=== PATIENT | male | born 1975 | race Caucasian/White ===

== ENCOUNTER 2019-04-25 07:38 | Inpatient (IN) | payer BC, SELFPAY ==
[2019-04-25] MEDS ORDERED: Clindamycin/D5W 900 mg/50 ml Premix Bag ONE (08:04)
[2019-04-25 08:12] LABS: #Eosinphils 0.1 thou/uL (0.0-0.7); #Lymphocytes 1.2 thou/uL (1.20-3.40); #Monocytes 1.3 thou/uL (0.11-0.59); #Neutrophils 9.9 thou/uL (1.40-6.50); %Eosinophils 0.5 % (0.0-10.0); %Lymphocytes 9.6 % (21.0-51.0); %Monocytes 10.7 % (0.0-10.0); %Neutrophils 79.3 % (42.0-75.0); Hemoglobin 16.3 g/dL (14.0-18.0); Mean Corpuscular HGB CONC 34.2 g/dL (32.0-36.0); Mean Corpuscular Volume 87.9 fL (78.0-98.0); Mean Platelet Volume 6.9 fL (7.4-10.4); Platelet Count 223 thou/uL (130-400); RBC Distribution Width 12.7 % (11.5-14.5); Red Blood Cell (RBC) Count 5.44 mill/uL (4.70-6.10); White Blood Cell (WBC) Count 12.5 thou/uL (4.8-10.8)
[2019-04-25 08:17] LABS: PTT 24.1 SEC (22.9-36.1); Prothrombin Time 13.6 SEC (12.0-14.7)
[2019-04-25] MEDS ORDERED: Morphine 4 MG/ML VIAL ONE (08:24)
--- NOTE | 2019-04-25 08:24 | RAD ---
Exam: Chest one view HISTORY:Fever. Abscess to the buttocks. Comparison: None FINDINGS: Cardiac silhouette: Normal Aorta: Unremarkable Pulmonary vessels: Normal Costophrenic angles: Clear LUNGS: No masses or consolidation. Pneumothorax: None Osseous abnormalities: None IMPRESSION: No acute cardiopulmonary process.
[2019-04-25 08:35] LABS: ALT (SGPT) 28 U/L (8-55); AST (SGOT) 14 U/L (5-34); Albumin 4.4 g/dL (3.5-5.0); Alkaline Phosphatase 105 U/L (40-150); Anion Gap 17 mmol/L (10-20); BUN (Urea Nitrogen) 16 mg/dL (8.9-20.6); Bilirubin, Total 0.9 mg/dL (0.2-1.2); CK (CPK) 29 U/L (30-200); Calc. Creatinine Clearance 0 mL/min (70-130); Calcium 9.7 mg/dL (7.8-10.44); Carbon Dioxide 21 mmol/L (22-29); Chloride 100 mmol/L (98-107); Estimated GFR-MDRD Greater than 90; Globulin 3.6 g/dL (2.4-3.5); Glucose 335 mg/dL (70-105); Potassium 4.2 mmol/L (3.5-5.1); Sodium 134 mmol/L (136-145)
--- NOTE | 2019-04-25 09:10 | CT ---
Exam: Postcontrast pelvic CT HISTORY: Abscess involving the right buttocks. Comparison none FINDINGS: Visualized intrapelvic structures are unremarkable. Unremarkable urinary bladder No abnormality with regards to the osseous structures. There is mild degenerative change in the lumbo sacral junction with osteophyte formation. Midline intrapelvic structures are. There is a tract emanating from the posterior right aspect of the base of the perineum, just anterior to the midline of the rectum. This tract extends inferiorly and along the medial right buttock subcutaneous fat and soft tissues. There is evidence of small air-fluid level with multiple small poc kets of air attenuation. This collection measures 7.0 cm anterior-posterior by 3.2 cm mediolateral by 7.7 cm craniocaudal. There is induration of the adjacent fat. With regards to the left buttocks, no abnormality IMPRESSION: Right buttocks perirectal abscess described above. There is a small focus of continuity of the absces s that is centered in the medial right buttocks subcutaneous fat with the anterior midline rectum.
[2019-04-25] MEDS ORDERED: Lidocaine 1% w/Epinephrine 1:100K 20 ML VIAL ONE (10:29)
[2019-04-25] MEDS ORDERED: Iopamidol 370 76% 100 ML VIAL ONE (11:18)
[2019-04-25 12:21] LABS: Lactic Acid 1.1 mmol/L (0.5-2.2)
[2019-04-25 12:23] LABS: Bilirubin Negative (Negative); Blood, Urine Negative (Negative); Clarity Clear (Clear); Glucose, Urine (Dipstick) Greater than 1000 mg/dL (Negative); Leukocyte Negative Leu/uL (Negative); Nitrite Negative (Negative); Protein, Urine (Dipstick) Negative (Neg-Trace); Urobilinogen Normal mg/dL (Less than 2)
[2019-04-25] MEDS ORDERED: Morphine 2 MG/ML SYRINGE SLOW IVP PRN (12:50)
[2019-04-25] MEDS ORDERED: Dextrose 50% Abboject 50 ML SYRINGE IVP PRN (12:50)
[2019-04-25] MEDS ORDERED: Dextrose 5% in Water 1,000 ML IV PRN (12:50)
[2019-04-25] MEDS ORDERED: Sodium Chloride 0.9% 1,000 ML IV SCH (13:00)
[2019-04-25] MEDS ORDERED: Clindamycin/D5W 900 MG in Premix Bag 1 BAG IVPB SCH (17:00)
[2019-04-25 17:06] VITALS: BMI 38.8
[2019-04-25] MEDS ORDERED: Acetaminophen 325 MG TAB PO PRN (20:14)
[2019-04-25] MEDS ORDERED: Ibuprofen 200 MG TAB PO PRN ×2 (20:15)
[2019-04-25] MEDS: Piperacillin/Tazobactam 3.375 GM in Sodium Chloride 0.9% 100 ML IVPB SCH (20:27)
[2019-04-25] MEDS: Ibuprofen 600 MG TAB PO PRN (20:49)
[2019-04-25] MEDS ORDERED: Vancomycin HCl 1 GM in Premix Bag 1 BAG IVPB SCH (22:00)
--- NOTE | 2019-04-26 01:35 | HP ---
CHIEF COMPLAINT: Right buttock pain. HISTORY OF PRESENT ILLNESS: Mr. Ventura is a 44-year-old man with a 2-week history of pain, swelling and redness in his right perianal area. This has spread to include the perineum and posterior scrotum and over the past 3 days, has become much more swollen and tender. He has not had any drainage. He has had some fevers today. He came to the emergency room and was found to have a large perirectal abscess. The ER doctor did not feel comfortable draining. He has never had anything similar to this before. He is otherwise healthy. He denies any injury to the area. PAST MEDICAL HISTORY: Hypertension, diabetes and hyperlipidemia. PAST SURGICAL HISTORY: None. SOCIAL HISTORY: The patient does not smoke or use illicit drugs. He drinks socially about once a week. ALLERGIES: NO KNOWN DRUG ALLERGIES. OUTPATIENT MEDICATIONS: Include; 1. Jardiance. 2. Glyburide. 3. Lisinopril. 4. Lipitor. 5. Metformin. REVIEW OF SYSTEMS: Ten-system review of systems is negative except as per HPI. Pain is exacerbated by movement or pressure. He has not had any blood in his stool or changes in his bowel habits. PHYSICAL EXAMINATION: VITAL SIGNS: The patient did have a fever to 101 in the emergency room. He was fairly tachycardic on arrival in the 120s, but this came down with IV fluids to about 100, respirations, and room air saturations were normal. Blood pressure was normal to elevated. GENERAL: Revealed a flushed, uncomfortable appearing man, who is warm to the touch. He is not jaundiced or icteric. HEENT: Unremarkable. NECK: Supple without lymphadenopathy or thyroid nodules. HEART: Sounds are distant, but regular in rate and rhythm. LUNGS: Sounds are also distant, but clear. ABDOMEN: Soft, nontender, nondistended without palpable masses or hernias. EXTREMITIES: Warm and well perfused. NEUROLOGIC: No focal deficits. PSYCHIATRIC: Alert, oriented and appropriate. Perianal exam reveals a large amount of swelling, tenderness and redness over the entire right perianal area and extending up onto the perineum and posterior scrotum. There is a fluctuant area in the right perianal area, where the abscess very closely approaches the skin by ultrasound. This was marked. No expressible drainage at this point. No skin opening. Digital rectal exam was not performed due to the patient's severe pain. CT images are reviewed and I agree with written report. He has a large perirectal abscess extending from the right perirectal area all the way around to the anterior portion of the perianal area, which is likely where the abscess originated. LABORATORY DATA: White count is elevated at 12.5 with left shift. Coags are normal. Electrolytes are unremarkable. LFTs are normal and lactate is normal. Urine is positive for greater than 1000 glucose and 60 ketones. ASSESSMENT: Large right perirectal abscess. I recommended incision and drainage at the bedside with drain placement. Due to significant cellulitis, he will need to be admitted for IV antibiotics after the procedure. The patient is agreeable with this plan and I and D was performed with drainage of a large amount of pus. The abscess extends anteriorly 7 cm and the cavity was irrigated and a drain placed. He is going to be admitted for antibiotics and wound care. Job ID: [id number]
[2019-04-26] MEDS: Piperacillin/Tazobactam 3.375 GM in Sodium Chloride 0.9% 100 ML IVPB SCH ×4 (03:34→21:22)
[2019-04-26] MEDS: Ibuprofen 600 MG TAB PO PRN (08:26)
[2019-04-26] MEDS ORDERED: Lidocaine 1% PF 5 ML VIAL ONE (14:27)
[2019-04-26] MEDS ORDERED: Succinylcholine Chloride 20 MG/ML 10 ml SYRINGE FS ONE (14:27)
[2019-04-26] MEDS ORDERED: Ondansetron PF 4 MG/2 ML Vial ONE (14:27)
[2019-04-26] MEDS ORDERED: Dexamethasone 20 MG/5 ML VIAL ONE (14:27)
[2019-04-26] MEDS ORDERED: PROPOFOL 200 MG/20 ML VIAL ONE (14:27)
[2019-04-26] MEDS ORDERED: Metoclopramide HCl 10 MG/2 ML VIAL ONE (14:27)
[2019-04-26] MEDS ORDERED: Lidocaine 2% PF 5 ML VIAL ONE (16:00)
[2019-04-26] MEDS ORDERED: Bupivacaine/Epinephrine 0.25% 30 ML VIAL ONE (16:00)
[2019-04-26] MEDS ORDERED: Fentanyl 100 MCG/2 ML VIAL ONE ×2 (16:30→17:10)
--- NOTE | 2019-04-26 16:34 | PDOC.GSPN ---
Surgery Progress Note: Subj - Subjective Narrative: Patient is still having a lot of pain. He is draining quite a bit from the I&D site, but there is still expressible purulence from the anterior extension of the abscess cavity. His erythema and induration has not really improved. I suspect he will need a counterincision over the perineum in order to adequately drain this large abscess cavity. I made him nothing by mouth and posted for the OR later this afternoon. Surgery Progress Note: Obj - Vital signs Vital signs: Vital Signs - Most Recent Temp Pulse Resp BP Pulse Ox 98.4 F 77 18 134/85 96 04/26/19 14:59 04/26/19 14:59 04/26/19 14:59 04/26/19 14:59 04/26/19 14:59 Surgery Progress Note: Results - Labs Result Diagrams: 04/25/19 08:01 04/25/19 08:01
[2019-04-26] MEDS ORDERED: SUGAMMADEX SODIUM 500 MG/5 ML VIAL ONE (17:10)
[2019-04-26] MEDS ORDERED: Famotidine/PF 20 mg/2ml Vial ONE (17:10)
[2019-04-26] MEDS ORDERED: Morphine 2 MG/ML SYRINGE SLOW IVP PRN (17:19)
[2019-04-26] MEDS ORDERED: Morphine 4 MG/ML VIAL SLOW IVP PRN (17:19)
[2019-04-26] MEDS ORDERED: HYDROcodone/Acetaminophen 7.5/325 mg Tablet PO PRN (17:20)
[2019-04-26] MEDS ORDERED: Promethazine HCl 25 MG/ML VIAL SLOW IVP PRN (17:55)
[2019-04-26] MEDS ORDERED: Ondansetron HCl/PF 4 MG/2 ML Vial IVP PRN (17:55)
[2019-04-26] MEDS ORDERED: Promethazine HCl 25 MG/ML VIAL IM PRN (17:55)
[2019-04-27] MEDS: Piperacillin/Tazobactam 3.375 GM in Sodium Chloride 0.9% 100 ML IVPB SCH ×4 (03:50→21:01)
[2019-04-27] MEDS: Ibuprofen 600 MG TAB PO PRN ×2 (03:59→15:39)
[2019-04-27 05:55] LABS: #Lymphocytes 0.8 thou/uL (1.20-3.40); #Monocytes 0.5 thou/uL (0.11-0.59); #Neutrophils 6.4 thou/uL (1.40-6.50); %Basophils 0.1 % (0.0-1.0); %Eosinophils 0.5 % (0.0-10.0); %Lymphocytes 10.5 % (21.0-51.0); %Monocytes 6.6 % (0.0-10.0); %Neutrophils 82.3 % (42.0-75.0); Hemoglobin 14.5 g/dL (14.0-18.0); Mean Corpuscular HGB CONC 31.9 g/dL (32.0-36.0); Mean Corpuscular Hemoglobin 28.5 pg (27.0-31.0); Mean Corpuscular Volume 89.2 fL (78.0-98.0); Platelet Count 238 thou/uL (130-400); RBC Distribution Width 12.6 % (11.5-14.5); White Blood Cell (WBC) Count 7.7 thou/uL (4.8-10.8)
[2019-04-27 06:00] LABS: Hemoglobin A1c 11.6 % (4.0-6.0)
[2019-04-27 06:18] LABS: Anion Gap 17 mmol/L (10-20); BUN (Urea Nitrogen) 13 mg/dL (8.9-20.6); Calc. Creatinine Clearance 248 mL/min (70-130); Calcium 9.1 mg/dL (7.8-10.44); Carbon Dioxide 22 mmol/L (22-29); Chloride 102 mmol/L (98-107); Estimated GFR-MDRD Greater than 90; Glucose 288 mg/dL (70-105); Potassium 3.9 mmol/L (3.5-5.1); Sodium 137 mmol/L (136-145)
[2019-04-27] MEDS: HYDROcodone/Acetaminophen 7.5/325 mg Tablet PO PRN (21:08)
[2019-04-28] MEDS: Piperacillin/Tazobactam 3.375 GM in Sodium Chloride 0.9% 100 ML IVPB SCH ×3 (03:28→16:39)
[2019-04-28] MEDS: HYDROcodone/Acetaminophen 7.5/325 mg Tablet PO PRN (07:20)
[2019-04-28 16:45] VITALS: BP 126/84; TEMP 98
--- NOTE | 2019-04-29 05:56 | CON ---
DATE OF CONSULTATION: The patient currently does not have a primary care physician. REASON FOR CONSULTATION: Diabetes mellitus. REASON FOR ADMISSION: Right buttock abscess. HISTORY OF PRESENT ILLNESS: Mr. Ventura is a very pleasant 44-year-old gentleman, who has a history of hypertension; however, he is not on any medications. He is admitted by the Surgery Service for a right perianal abscess. While he was hospitalized. It was noted that his blood glucose was elevated, sometimes as high as 335. Hemoglobin A1c was checked, and it was 11.6, and we have been asked to see the patient with regard to diabetes mellitus. Prior to the hospitalization, the patient did not have any symptoms related to diabetes mellitus and his mother, who is at the bedside, says she was checking him periodically, and his sugars had been running in the low 100 range. He has some sensorineural hearing loss, but other than that, no other complaints; however, he did have some numbness in both feet off and on. REVIEW OF SYSTEMS: All systems were reviewed and were negative except for that mentioned in the history of present illness. PAST MEDICAL HISTORY: Significant for hypertension and hearing loss as well as gout. PAST SURGICAL HISTORY: Negative. ALLERGIES: NO KNOWN DRUG ALLERGIES. SOCIAL HISTORY: He is a non-smoker and non-drinker. FAMILY HISTORY: Significant for diabetes in his mother, heart disease, as well as cancer. MEDICATIONS: Prior to admission, none. PHYSICAL EXAMINATION: GENERAL: He is alert and oriented. He appears to be in no acute distress. He is well-developed and well-nourished. VITAL SIGNS: Blood pressure is 113/75, heart rate 73, respiratory rate of 16, and temperature is 98.0. HEENT: Pupils are equal, round, and reactive. Extraocular muscles are intact. Sclerae anicteric. Throat, no erythema, no exudates. NECK: No adenopathy. No bruits. LUNGS: Clear to auscultation. No wheezing. No rales. No rhonchi. CARDIOVASCULAR: He has a normal S1, S2. There is no S3 or S4. No murmurs, clicks, or rubs. ABDOMEN: Obese. It is soft, non-tender, and non-distended. Positive for bowel sounds. No rebound or guarding. EXTREMITIES: There is no clubbing or cyanosis. No edema. No calf tenderness. No joint effusions. NEUROLOGIC: His cranial nerves 2 through 12 are grossly intact. Muscle strength is 5/5 in both his upper and lower extremities. SKIN AND INTEGUMENT: No skin changes. No rash, other than some calluses on the balls of both feet. He did have some mild hammertoe deformity, but no open sores. LABORATORY DATA: His hemoglobin A1c was 11.6. Sodium is 137, potassium 3.9, chloride is 102, CO2 is 22, BUN of 13, creatinine 0.76, and glucose 288. CBC was essentially normal. ASSESSMENT: 1. This is a 44-year-old gentleman, who is being admitted for perianal abscess. He was found to be hyperglycemic. His random blood glucose meets the threshold for diabetes mellitus, and his A1c is also elevated. Therefore, he is diabetic. This was discussed with the patient as well as general diabetic care such as eye care, foot care, and the need for regular monitoring of renal function, and a yearly eye exam. The diet was briefly discussed as well as the potential adverse effects with metformin. We will go ahead and start him on metformin 500 mg twice daily with meals, and he has been urged to have close outpatient followup. 2. Perirectal abscess. This treatment will be deferred to General Surgery, but it is my understanding that he is likely to be discharged later on this evening. Job ID: [id number]
--- NOTE | 2019-04-29 13:04 | DIS ---
DATE OF ADMISSION: 04/25/2019 DATE OF DISCHARGE: 04/28/2019 FINAL DIAGNOSES: 1. Newly diagnosed diabetes. 2. Large perirectal abscess. 3. Morbid obesity. HISTORY: Mr. Ventura is a 44-year-old man who presented to the ER with a large perirectal abscess. He underwent I and D at bedside, but it was felt that this was not adequately draining his abscess. He was taken to the operating room the following day and underwent I and D under anesthesia with placement of counter incisions and additional drain. Following this, the induration and erythema in the perirectal and perineal areas rapidly improved. However, the patient's blood sugars continued to run high and hemoglobin A1c returned high as well. This was diagnostic of diabetes. So, an inpatient medicine consult was obtained and the patient was started on oral medications for this. Case Management gave the patient information on available medical clinics to follow up on his diabetes and the dietitian discussed diabetic diet recommendations with him. He was discharged home with instructions to continue with twice daily sitz baths and external dressing changes. He was given a prescription for metformin 500 mg p.o. b.i.d. and he is to follow up in the General Surgery Clinic in 1 week for drain removal. Job ID: [id number]
--- NOTE | 2019-04-30 17:23 | PDOC.OP ---
Operative Note - Operative Note Operative Note: PROCEDURE: Examination under anesthesia, incision and drainage of large perirectal abscess SURGEON: Janny Paniagua M.D. DATE: 04/26/2019 PREOPERATIVE DIAGNOSIS: Large perirectal abscess POSTOPERATIVE DIAGNOSIS: Large perirectal abscess HISTORY: Patient presented to the hospital with a large perirectal abscess. This was drained at the bedside with Jessica drain placed into the anterior portion, but he had persistent erythema and induration and it was felt that the abscess was not adequately drained and would require a counterincision in the perineal area. Recommendation was made to proceed to the operating room for this. PROCEDURE IN DETAIL: After informed consent was obtained and appropriate preoperative antibodies continue the patient was taken to the operating room he was placed in supine position and general anesthesia was administered he was placed in lithotomy position and wrapped and draped in standard sterile fashion. Local anesthesia was infused the skin and subcutaneous taste tissues overlying the initial I&D site and the incision was extended to allow digital examination of the abscess cavity. This was found to extend all the way to the perineal area and the closest approach to the skin was identified. Local anesthesia was infused at that site and a skin incision made. A counterincision was made down into the abscess cavity. A [place] drain was placed through this counterincision out through the original I&D site in the right lateral perirectal area and the loop drain secured. On probing, there were deep extensions into the perirectal area both anteriorly and posteriorly and additional Jessica drains were placed into those areas and secured to the skin with nylon sutures. The wound was copiously irrigated to clear. External dressings were placed and the patient was extubated and taken to recovery in good condition. Estimated blood loss was minimal. There were no complications. There were no specimens
== END 2019-04-28 17:03 | disposition home or self-care (01) | DRG 854 ==
LOC: ERS 07:38 → SURG B 11:29
PROVIDERS: ADMIT Surgery; ATTEND Surgery
PROC: 0D9P00Z Drainage of Rectum with Drainage Device, Open Approach (ICD-10-PCS; principal; 2019-04-26)
DX: A41.9 Sepsis, unspecified organism (principal); K61.1 Rectal abscess; E11.65 Type 2 diabetes mellitus with hyperglycemia; I10 Essential (primary) hypertension; E78.5 Hyperlipidemia, unspecified; H91.90 Unspecified hearing loss, unspecified ear; M10.9 Gout, unspecified
CPT/HCPCS: 36415; 71045; 72193; 80048; 80053; 81003; 82550; 83036; 83605; 85025; 85610; 85730; 87040; 87070; 87077; 87205; 93005; 96365; 96367; 96375; J1100; J2001; J2270; J2405; J2543; J2704; J2765; J3010; J3370; J3490; Q9967; S0028

== ENCOUNTER 2021-04-25 07:49 | Outpatient (CLI) | payer OTHER | END 2021-04-25 07:50 | disposition home or self-care (01) | LOC: RAD-FRANK 07:49 | PROVIDERS: ATTEND Nurse Practitioner Family | DX: M25.511 Pain in right shoulder (principal) ==

== ENCOUNTER 2021-08-09 23:53 | Emergency (ER) | payer SELFPAY | END 2021-08-10 03:15 | disposition home or self-care (01) | LOC: ERS 23:53 | DX: H60.92 Unspecified otitis externa, left ear (principal); I10 Essential (primary) hypertension; E11.9 Type 2 diabetes mellitus without complications | CPT/HCPCS: 99282 ==

== ENCOUNTER 2021-09-10 08:02 | Emergency (ER) | payer SELFPAY | END 2021-09-10 09:21 | disposition home or self-care (01) | LOC: ERS 08:02 | DX: S43.401A Unspecified sprain of right shoulder joint, initial encounter (principal); W55.22XA Struck by cow, initial encounter; H72.92 Unspecified perforation of tympanic membrane, left ear; I10 Essential (primary) hypertension; E11.9 Type 2 diabetes mellitus without complications | CPT/HCPCS: 99283 ==